=== PATIENT | male | born 1950 | race Caucasian/White ===

== ENCOUNTER 2017-07-30 12:05 | Outpatient (CLI) | payer MEDICARE, OTHER | END 2017-07-30 12:06 | disposition home or self-care (01) | LOC: LAB 12:05 | PROVIDERS: ATTEND Internal Medicine | DX: E87.5 Hyperkalemia (principal) | CPT/HCPCS: 36415; 84132 ==

== ENCOUNTER 2017-08-06 09:15 | Outpatient (CLI) | payer MEDICARE, OTHER | END 2017-08-06 09:16 | disposition home or self-care (01) | LOC: LAB 09:15 | PROVIDERS: ATTEND Family Medicine | DX: E87.5 Hyperkalemia (principal) | CPT/HCPCS: 36415; 84132 ==

== ENCOUNTER 2018-04-29 13:36 | Outpatient (CLI) | END 2018-04-29 13:37 | disposition home or self-care (01) ==

== ENCOUNTER 2018-10-14 16:29 | Outpatient (CLI) | payer MEDICARE, OTHER | END 2018-10-14 16:30 | disposition home or self-care (01) | LOC: LAB 16:29 | PROVIDERS: ATTEND Family Medicine | DX: E78.5 Hyperlipidemia, unspecified (principal) | CPT/HCPCS: 36415; 84132 ==